=== PATIENT | female | born 1985 | race Caucasian/White ===

== ENCOUNTER → 2016-08-23 | Outpatient (CLI) | payer BC ==
[~2016-08-23] MED LIST: AZITTAB PO; MECL1TAB42 PO; MULT-506 PO
[2016-08-23 12:36] LABS: ALKALINE PHOSPHATASE 50 U/L (45-117); ALT/SGPT 43 U/L (12-78); AST/SGOT 22 U/L (15-37)
== END | disposition home or self-care (01) ==
LOC: C.LAB1850 10:43
PROVIDERS: ATTEND Registered Nurse
DX: K76.0 Fatty (change of) liver, not elsewhere classified (principal)

== ENCOUNTER → 2016-08-27 | Outpatient (CLI) | payer BC ==
--- NOTE | 2016-08-27 09:46 | DIAGNOSTIC IMAGING REPORT ---
BILIARY ULTRASOUND CLINICAL HISTORY: K76.0 Nonalcoholic fatty liver [id number] COMPARISON STUDY: 04/24/2013 FINDINGS: The pancreas appears sonographically normal. The liver is of slightly increased echogenicity, nonspecific finding often seen in hepatic steatosis. There are multiple hypoechoic hepatic lesions measuring up to 1 cm in diameter. These were not described on the prior 2012 study. The gallbladder appears sonographically normal. There is no ductal dilatation. The common bile duct measures 3 mm. There is no right-sided hydronephrosis. IMPRESSION: 1. Slight increase in hepatic echogenicity, a nonspecific finding often seen in hepatic steatosis 2. Ultrasonographically normal gallbladder and pancreas. No ductal dilatation 3. Multiple nonspecific hepatic hypodensities measuring up to 1 cm in diameter. These do not meet the criteria for simple cysts and are of indeterminate etiology. Clinical correlation is advocated. Electronically signed by: Tom Allen M.D. 08/27/2016 9:44 AM Dictated Date/Time: 08/27/2016 9:35 AM
== END | disposition home or self-care (01) ==
LOC: C.ULTR 09:08
PROVIDERS: ATTEND Registered Nurse
DX: K76.0 Fatty (change of) liver, not elsewhere classified (principal)

== ENCOUNTER → 2016-09-05 | Outpatient (CLI) | payer BC ==
--- NOTE | 2016-09-05 08:40 | DIAGNOSTIC IMAGING REPORT ---
CT LIVER (ABDOMEN) COMBO CT DOSE: 1130.14 mGy.cm CLINICAL HISTORY: LIVER LESIONS abnormal ultrasound. TECHNIQUE: Unenhanced images were obtained through the abdomen. The patient was then scanned in a dynamic helical fashion during intravenous administration of 118 cc Optiray 320. 30 seconds a second imaging was obtained. COMPARISON STUDY: Ultrasound dated 08/27/2016 FINDINGS: Unenhanced images reveal a 4 mm nonobstructing left renal calculus. The visualized portions of the lung bases are unremarkable. The hepatic lesions described on the ultrasound study, are not visualized on unenhanced arterial phase or portal phase images. No hepatic lesions are evident. The portal vein appears patent. There is no ductal dilatation. No gallbladder abnormality visualized. The spleen appears normal. No adrenal masses are visualized. No renal masses are visualized. There is no abdominal aortic dilatation. There is no pathologic adenopathy. There is minimal appendiceal thickening (7.4 mm). There is no periappendiceal inflammatory stranding. In the absence of right lower quadrant abdominal pain this likely represents a normal variant. There is a disc osteophyte complex slightly asymmetric to the right at the L1-2 level. IMPRESSION: 1. Nonobstructing left renal calculus 2. The hepatic lesions described on the most recent ultrasound are not visible on CT scanning. Electronically signed by: Tom Allen M.D. 09/05/2016 8:38 AM Dictated Date/Time: 09/05/2016 8:29 AM
== END | disposition home or self-care (01) ==
LOC: C.CTS 07:41
PROVIDERS: ATTEND Registered Nurse
DX: K76.9 Liver disease, unspecified (principal); N20.0 Calculus of kidney

== ENCOUNTER → 2016-10-31 | Outpatient (CLI) | payer BC | END | disposition home or self-care (01) | LOC: C.LAB 08:01 | PROVIDERS: ATTEND Obstetrics & Gynecology | DX: E28.2 Polycystic ovarian syndrome (principal) ==

== ENCOUNTER → 2017-03-21 | Outpatient (CLI) | payer OTHER ==
--- NOTE | 2017-03-21 15:59 | MAMMOGRAPHY REPORT ---
BILATERAL DIGITAL SCREENING MAMMOGRAM TOMOSYNTHESIS WITH CAD: 03/21/2017 CLINICAL HISTORY: Routine screening. TECHNIQUE: Breast tomosynthesis in addition to standard 2D mammography was performed. Current study was also evaluated with a Computer Aided Detection (CAD) system. COMPARISON: Comparison is made to exams dated: 03/20/2016 mammogram, 03/17/2015 mammogram, 03/03/2014 ma mmogram, 02/05/2013 mammogram, 02/05/2012 mammogram, and 01/25/2011 mammogram - [facility] er. BREAST COMPOSITION: There are scattered areas of fibroglandular density in both breasts. FINDINGS: No suspicious masses, calcifications, or areas of architectural distortion are noted in ei ther breast. There has been no significant interval change compared to prior exams. IMPRESSION: ACR BI-RADS CATEGORY 1: NEGATIVE There is no mammographic evidence of malignancy. A 1 year screening mammogram is recommended. The pa tient will receive written notification of the results. Approximately 10% of breast cancers are not detected with mammography. A negative mammographic report should not delay biopsy if a clinically suggestive mass is present. Neetu Higuera M.D. ah/:03/21/2017 14:33:00 [employer] Spraying Machine Operator: Brigid CARRANZA(Yelena)(M), [facility] letter sent: Normal 1/2 BI-RADS Code: ACR BI-RADS Category 1: Negative
== END | disposition home or self-care (01) ==
LOC: C.MAMM 10:55
PROVIDERS: ATTEND Obstetrics & Gynecology
DX: Z12.31 Encounter for screening mammogram for malignant neoplasm of breast (principal)